=== PATIENT | female | born 1990 | race Caucasian/White ===

== ENCOUNTER 2020-11-03 07:43 | Emergency (ER) | payer BC, SELFPAY ==
--- OUTSIDE RECORDS SUMMARY | 2020-11-03 07:46 | XMS REPORT | Continuity of Care Document ---
:1990 Author Organization [facility] t Address [address] [place] [address] Care Team Providers Name Role Phone Unavailable Unavailable Unavailable Problems This patient has no known problems. Allergies, Adverse Reactions, Alerts This patient has no known allergies or adverse reactions. Medications Ordered Filled Start Stop Current Ordering Indication Dosage Frequency Signature Comments Components Source Medication Medication Date Date Medication? Clinician (SIG) Name Name Phentermine Phentermine Yes Andria [address] [facility] HCl HCl [facility] Clinics Macrobid Macrobid Yes Andria [address] [facility] at bedtime [facility] Procedures This patient has no known procedures. Encounters Start End Encounter Admission Attending Care Care Encounter Source Date/Time Date/Time Type Type Clinicians Facility Department ID 2019-10-17 2019-10-17 Outpatient Neela Murguia [id number] [facility] 10:55:00 10:55:00 t Specialty/U Susan kes - Special[facility] 2019-09-18 2019-09-18 Outpatient Neela Murguia [id number] [facility] 09:00:00 09:00:00 t Specialty/U Susan kes - Specialty rology [facility] l [facility] ent Clinics Results This patient has no known results.
[2020-11-03] MEDS ORDERED: IBUPROFEN 400 MG TAB ONE (08:58)
[2020-11-03 10:25] LABS: SARS-COV-2 RT PCR POSITIVE (NEGATIVE)
--- NOTE | 2020-11-03 10:31 | ER ---
Nurse's Notes [facility] Name: Royal Griffin Age: 30 yrs Sex: Female : 1990 Arrival Date: 11/03/2020 Time: 08:07 Bed 11 Private MD: Diagnosis: SARS-associated coronavirus as the cause of diseases classified elsewhere;Infectious mononucleosis, unspecified without complication;Headache Presentation: 11/03 08:12 Chief complaint: Patient states: LIN x 3 weeks, fever TMAX 100.5 that began 2 days ago. ss Coronavirus screen: Client presents with at least one sign or symptom that may indicate coronavirus-19. Standard/surgical mask placed on the client. Provider contacted for isolation considerations. Ebola Screen: Patient denies exposure to infectious person. Patient denies travel to an Ebola-affected area in the 21 days before illness onset. Initial Sepsis Screen: Does the patient meet any 2 criteria? No. Patient's initial sepsis screen is negative. Does the patient have a suspected source of infection? No. Patient's initial sepsis screen is negative. Risk Assessment: Do you want to hurt yourself or someone else? Patient reports no desire to harm self or others. Note Pt reports that she was seen by a physician yesterday and diagnosed with a sinus infection and given unknown medication. Onset of symptoms was October 13, 2020. 08:12 Method Of Arrival: Ambulatory ss 08:12 Acuity: MARIO 3 ss Historical: - Allergies: 08:13 No Known Allergies; ss - Home Meds: 08:13 None [Active]; ss - PMHx: 08:13 None; ss - PSHx: 08:13 None; ss - Immunization history:: Adult Immunizations up to date, Client reports having NOT received the Covid vaccine. - Social history:: Smoking status: Patient denies any tobacco usage or history of. - Family history:: not pertinent. - Hospitalizations: : No recent hospitalization is reported. Screenin:14 Abuse screen: Denies threats or abuse. Denies injuries from another. Nutritional ss screening: No deficits noted. Tuberculosis screening: Never had TB. Fall Risk None identified. Assessment: 08:14 General: Appears in no apparent distress. comfortable, Behavior is calm, cooperative, ss Reports fever for 1-2 days. Neuro: Level of Consciousness is awake, alert, obeys commands, Oriented to person, place, time, situation, Sock Mender are equal bilaterally Moves all extremities. Full function Gait is steady, Speech is normal, Facial symmetry appears normal, Pupils are PERRLA, Reports headache frontal area, since x 3 weeks Denies blurred vision dizziness, numbness. Cardiovascular: Capillary refill < 3 seconds is brisk in bilateral fingers Patient's skin is warm and dry. Respiratory: Airway is patent Respiratory effort is even, unlabored, Respiratory pattern is regular, symmetrical, Denies cough, shortness of breath labored breathing. GI: No signs and/or symptoms were reported involving the gastrointestinal system. Patient currently denies diarrhea, nausea, vomiting. : No signs and/or symptoms were reported regarding the genitourinary system. Denies burning with urination, urinary frequency. EENT: Oral mucosa is moist. Throat is clear Denies blurred vision nasal congestion, nasal discharge. Derm: Skin is intact, is healthy with good turgor, Skin is dry, Skin is pink, warm \T\ dry. normal. Vital Signs: 08:12 BP 125 / 87; Pulse 104; Resp 16; Temp 99.1(TE); Pulse Ox 100% on R/A; Weight 93.44 kg; ss Height 5 ft. 3 in. (160.02 cm); 08:12 Body Mass Index 36.49 (93.44 kg, 160.02 cm) ss Johnson Coma Score: 10:28 Eye Response: spontaneous(4). Verbal Response: oriented(5). Motor Response: obeys rn commands(6). Total: 15. ED Course: 08:07 Patient arrived in ED. ds1 08:07 Sherman Linares MD is Attending Physician. rn 08:12 Edith Easley RN is Primary Nurse. ss 08:13 Triage completed. ss 08:13 Arm band placed on right wrist. ss 08:14 Patient has correct armband on for positive identification. Bed in low position. Call ss light in reach. 08:14 No provider procedures requiring assistance completed. Patient did not have IV access ss during this emergency room visit. Administered Medications: 08:31 Not Given (Other Intervention Used): Tylenol 1000 mg PO once ss 08:35 Not Given (Other Intervention Used): Motrin (ibuprofen) 600 mg PO once ss 08:36 Drug: Motrin (ibuprofen) 800 mg Route: PO; ss 10:39 Follow up: Response: No adverse reaction Outcome: 10:30 Discharge ordered by . rn 10:39 Discharged to home ambulatory. 10:39 Condition: good 10:39 Discharge instructions given to patient, Instructed on discharge instructions, follow up and referral plans. Demonstrated understanding of instructions, follow-up care. 10:39 Patient left the ED. Signatures: FooteMagdalena ds1 Sherman Linares MD MD rn Smirch, Shelby, RN RN ss Corrections: (The following items were deleted from the chart) 08:20 08:12 Acuity: MARIO 4 ss ss 08:35 08:35 Motrin (ibuprofen) 800 mg PO [facility]
--- NOTE | 2020-11-03 10:31 | EDPHYS ---
Physician Documentation [facility] Name: Royal Griffin Age: 30 yrs Sex: Female : 1990 Arrival Date: 11/03/2020 Time: 08:07 Bed 11 Private MD: ED Physician Sherman Linares HPI: 11/03 08:38 This 30 yrs old Female presents to ER via Ambulatory with complaints of rn Headache, Fever. 08:38 The patient complains of pain to the forehead. The patient describes the headache as rn aching. Onset: The symptoms/episode began/occurred 3 week(s) ago. Associated signs and symptoms: Pertinent positives: fever, sinus congestion, Pertinent negatives: altered mental status, neck stiffness, rash, vision changes, vision loss, vomiting, weakness, vertigo. Severity of symptoms: At its worst the pain was moderate, "similar to past headaches", in the emergency department the pain is unchanged. Headache History: The patient has had previous headaches and this one is similar to previous episodes. The symptoms are alleviated by nothing. the symptoms are aggravated by nothing. The patient has experienced similar episodes in the past. The patient has been recently seen by a physician:. Patient reports 3 weeks of frontal headache, was not terrible, similar to previous headaches in the past. Began with low-grade fever and worsening of headache 3 days ago. Seen at walk-in clinic, diagnosed with sinusitis and given antibiotic. Denies head injury. Denies focal neurological problems. No vomiting. No neck stiffness. Reports even at increased level of pain is similar to previous headaches. Came in today for worsening headache and does not have PCP.. Historical: - Allergies: 08:13 No Known Allergies; ss - Home Meds: 08:13 None [Active]; ss - PMHx: 08:13 None; ss - PSHx: 08:13 None; ss - Immunization history:: Adult Immunizations up to date, Client reports having NOT received the Covid vaccine. - Social history:: Smoking status: Patient denies any tobacco usage or history of. - Family history:: not pertinent. - Hospitalizations: : No recent hospitalization is reported. ROS: 08:38 Constitutional: Negative for weight loss Eyes: Negative for injury, pain, redness, and consultant internship, ENT: Positive for sinus congestion Neck: Negative for injury, pain, and swelling, Cardiovascular: Negative for chest pain, palpitations, and edema, Respiratory: Negative for shortness of breath, cough, wheezing, and pleuritic chest pain, Abdomen/GI: Negative for abdominal pain, nausea, vomiting, diarrhea, and constipation, Back: Negative for injury and pain, : Negative for injury, bleeding, discharge, and swelling, MS/Extremity: Negative for injury and deformity, Skin: Negative for injury, rash, and discoloration, Neuro: Negative for weakness, numbness, tingling, and seizure. 08:38 All other systems are negative. Exam: 08:38 Constitutional: This is a well developed, well nourished patient who is awake, alert, rn and in no acute distress. Head/Face: Normocephalic, atraumatic. Eyes: Pupils equal round and reactive to light, extra-ocular motions intact. Lids and lashes normal. Conjunctiva and sclera are non-icteric and not injected. Cornea within normal limits. Periorbital areas with no swelling, redness, or edema. ENT: Mucous membranes moist. No oral swelling, erythema, masses Neck: Trachea midline, no masses palpated, and no cervical lymphadenopathy. Supple, full range of motion without nuchal rigidity, or vertebral point tenderness. No Meningismus. Cardiovascular: Tachycardic, regular. No pulse deficits. Respiratory: No increased work of breathing, no retractions or nasal flaring. Abdomen/GI: Soft, non-tender Skin: Warm, dry, no rashes MS/ Extremity: Pulses equal, no cyanosis. Neuro: Awake and alert, GCS 15, oriented to person, place, time, and situation. Motor strength 5/5 in all extremities. Sensory grossly intact. Cerebellar exam normal. Normal gait. Vital Signs: 08:12 BP 125 / 87; Pulse 104; Resp 16; Temp 99.1(TE); Pulse Ox 100% on R/A; Weight 93.44 kg; ss Height 5 ft. 3 in. (160.02 cm); 08:12 Body Mass Index 36.49 (93.44 kg, 160.02 cm) Kamaljit Coma Score: 10:28 Eye Response: spontaneous(4). Verbal Response: oriented(5). Motor Response: obeys rn commands(6). Total: 15. MDM: 08:21 Patient medically screened. rn 10:28 Differential diagnosis: migraine, sinusitis, tension headache, vasomotor headache, rn [place], Covid, flu, strep. Data reviewed: vital signs, nurses notes, lab test result(s), and as a result, I will discharge patient. Data interpreted: Pulse oximetry: on room air is 100 %. Interpretation: normal. Counseling: I had a detailed discussion with the patient and/or guardian regarding: the historical points, exam findings, and any diagnostic results supporting the discharge/admit diagnosis, lab results, the need for outpatient follow up, to return to the emergency department if symptoms worsen or persist or if there are any questions or concerns that arise at home. Response to treatment: the patient's symptoms have mildly improved after treatment, and as a result, I will discharge patient. Special discussion: I discussed with the patient/guardian in detail that at this point there is no indication for admission to the hospital. It is understood, however, that if the symptoms persist or worsen the patient needs to return immediately for re-evaluation. ED course: [place] positive, Covid positive, no oxygen requirement. Will DC home with symptomatic treatment and return precautions. Patient does not meet criteria for monoclonal antibody infusion for Covid.. 11/03 08:18 Order name: Flu ss 11/03 08:18 Order name: Strep; Complete Time: 10:02 ss 11/03 08:18 Order name: [place] Screen Profile; Complete Time: 10:02 ss 11/03 09:22 Order name: Throat Culture EDMS 11/03 10:25 Order name: COVID-19/FLU A+B; Complete Time: 10:28 EDMS Administered Medications: 08:31 Not Given (Other Intervention Used): Tylenol 1000 mg PO once ss 08:35 Not Given (Other Intervention Used): Motrin (ibuprofen) 600 mg PO once ss 08:36 Drug: Motrin (ibuprofen) 800 mg Route: PO; ss 10:39 Follow up: Response: No adverse reaction ss Disposition Summary: 11/03/20 10:30 Discharge Ordered Location: Home rn Problem: new rn Symptoms: have improved rn Condition: Stable rn Diagnosis - SARS-associated coronavirus as the cause of diseases classified elsewhere rn - Infectious mononucleosis, unspecified without complication rn - Headache rn Followup: rn - With: Private Physician - When: As needed - Reason: Recheck today's complaints, Re-evaluation by your physician Discharge Instructions: - Discharge Summary Sheet rn - Infectious Mononucleosis rn - COVID-19 rn - 10 Things You Can Do to Manage Your COVID-19 Symptoms at Home - CDC rn - Viral Illness, Adult rn Forms: - Medication Reconciliation Form rn - Thank You Letter rn - Antibiotic 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 Began with low-grade fever and worsening of headache 3 days ago. Seen at walk-in clinic, diagnosed with sinusitis and given antibiotic. Denies head injury. Denies focal neurological problems. No vomiting. No neck stiffness.. rn 08:51 08:19 Influenza Screen (A ordered. EDMS EDMS 08:51 08:19 CORONAVIRUS+MR.LAB.BRZ ordered. EDMS EDMS
[2020-11-03 10:45] VITALS: BP 125/87; TEMP 99.1; O2SAT 100
== END 2020-11-03 10:39 | disposition home or self-care (01) ==
LOC: ER 07:43
DX: U07.1 COVID-19 (principal); B27.90 Infectious mononucleosis, unspecified without complication
CPT/HCPCS: 0240U; 36415; 86308; 87070; 87081; 99283

== ENCOUNTER 2020-11-08 05:22 | Emergency (ER) | payer SELFPAY ==
--- OUTSIDE RECORDS SUMMARY | 2020-11-08 05:26 | XMS REPORT | Continuity of Care Document ---
:1990 Author Organization [facility] t Address [address] [place] [address] Care Team Providers Name Role Phone Unavailable [...] [facility] Macrobid Macrobid Yes Andria [address] [facility] at bedtime [facility] Procedures This patient has no known procedures. Encounters Start End Encounter Admission Attending Care Care Encounter Source Date/Time Date/Time Type Type Clinicians Facility Department ID 2019-10-17 2019-10-17 Outpatient Neela Murguia [id number] [facility] 10:55:00 10:55:00 t Specialty/U Susan kes - Specialty [facility] 2019-09-18 2019-09-18 Outpatient Neela Murguia [id number] [facility] 09:00:00 09:00:00 t Specialty/U Susan kes - Specialty rology [facility] l [facility] ent Clinics Results This patient has no known results.
[2020-11-08 06:36] LABS: Absolute Lymphocytes (CBC) 1.1 K/uL (0.7-4.9); Basophils % 0.4 % (0-1.3); Hematocrit 41.8 % (36.0-45.0); Lymphocytes % 26.9 % (15.3-44.8); MPV 8.4 fL (7.6-11.3); RBC Red Blood Cell Count 4.91 M/uL (3.86-4.86)
[2020-11-08 06:48] LABS: BUN Blood Urea Nitrogen 7 mg/dL (7-18); Bicarbonate 18 mmol/L (21-32); Glucose Level 97 mg/dL (74-106); Potassium 3.4 mmol/L (3.5-5.1); Sodium Level 133 mmol/L (136-145)
[2020-11-08] MEDS ORDERED: ONDANSETRON 4 MG/2 ML VIAL ONE (06:56)
[2020-11-08] MEDS ORDERED: NA CHLORIDE 0.9% 1,000 ML ONE ×2 (06:56→08:22)
[2020-11-08 07:44] LABS: Urine Blood 2+ (Negative); Urine Glucose Negative (Negative); Urine Protein Trace (Negative)
--- NOTE | 2020-11-08 07:52 | EDPHYS ---
Physician Documentation [facility] Name: Royal Griffin Age: 30 yrs Sex: Female : 1990 Arrival Date: 11/08/2020 Time: 05:25 Bed 9 Private MD: ED Physician James Salas HPI: 11/08 06:03 This 30 yrs old Female presents to ER via Ambulatory with complaints of kb Dehydrated, Fever. 06:03 The patient presents to the emergency department with nausea, vomiting, diarrhea. kb Onset: The symptoms/episode began/occurred 5 day(s) ago. Possible causes: unknown. The symptoms are aggravated by nothing. The symptoms are alleviated by nothing. Associated signs and symptoms: Pertinent positives: diarrhea, fever, nausea, vomiting. Severity of symptoms: At their worst the symptoms were moderate in the emergency department the symptoms are unchanged. The patient has not experienced similar symptoms in the past. The patient has not recently seen a physician. Pt states "I just don't feel good. I think I'm dehydrated." Reports n/v/d, fever, chills, headache, low back pain and malaise for 5 days. . 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 - Social history:: Smoking status: unknown. ROS: 06:05 Respiratory: Negative for shortness of breath, cough, wheezing, and pleuritic chest kb pain. 06:05 Constitutional: Positive for chills, fever, malaise. 06:05 Abdomen/GI: Positive for nausea, vomiting, and diarrhea, Negative for abdominal pain. 06:05 Back: Positive for pain at rest, pain with movement. 06:05 Neuro: Positive for headache. 06:05 All other systems are negative. Exam: 06:05 Constitutional: This is a well developed, well nourished patient who is awake, alert, kb and in no acute distress. Head/Face: Normocephalic, atraumatic. ENT: Moist Mucous membranes Cardiovascular: Regular rate and rhythm with a normal S1 and S2. No gallops, murmurs, or rubs. No pulse deficits. Respiratory: Respirations even and unlabored. No increased work of breathing, no retractions or nasal flaring. Abdomen/GI: Soft, non-tender. No distention Back: No spinal tenderness. No costovertebral tenderness. Full range of motion. Skin: Warm, dry with normal turgor. Normal color. MS/ Extremity: Pulses equal, no cyanosis. Neurovascular intact. Full, normal range of motion. Neuro: Awake and alert, GCS 15, oriented to person, place, time, and situation. Moves all extremities. Normal gait. Psych: Awake, alert, with orientation to person, place and time. Behavior, mood, and affect are within normal limits. Vital Signs: 05:34 BP 131 / 86; Pulse 122; Resp 20; Temp 98.5; Pulse Ox 99% on R/A; da3 07:07 BP 106 / 59; Pulse 87; Resp 22 S; Temp 99.6(O); Pulse Ox 97% on R/A; bb MDM: 05:57 Patient medically screened. kb 06:05 Data reviewed: vital signs, nurses notes. Data interpreted: Pulse oximetry: on room air kb is 99 %. Interpretation: normal. 11/08 06:03 Order name: Basic Metabolic Panel; Complete Time: 06:49 kb 11/08 06:03 Order name: CBC with Diff; Complete Time: 06:49 kb 11/08 06:03 Order name: COVID-19 : Document "Date of Symptom Onset" if Symptomatic. kb 11/08 07:44 Order name: Urine Dipstick-Ancillary; Complete Time: 07:51 EDMS 11/08 06:03 Order name: IV Saline Lock; Complete Time: 06:40 kb 11/08 06:03 Order name: Labs collected and sent; Complete Time: 06:40 kb 11/08 06:03 Order name: Urine Dipstick-Ancillary (obtain specimen); Complete Time: 07:36 kb Administered Medications: 06:40 Drug: NS 0.9% 1000 ml Route: IV; Rate: 1000 ml; Site: left forearm; bb 08:52 Follow up: IV Status: Completed infusion; IV Intake: 1000ml ss 06:40 Drug: Zofran (Ondansetron) 4 mg Route: IVP; Site: left forearm; bb 07:38 Follow up: Response: No adverse reaction ss 08:05 Drug: Ketorolac 30 mg Route: IVP; Site: left forearm; ss 08:52 Follow up: Response: No adverse reaction; Pain is decreased ss 08:05 Drug: NS 0.9% 1000 ml Route: IV; Rate: 1000 ml; Site: left forearm; ss 08:52 Follow up: IV Status: Completed infusion; IV Intake: 1000ml ss Disposition: 11/09 05:10 Co-signature as Attending Physician, James Salas MD. [email or web address] Disposition Summary: 11/08/20 07:51 Discharge Ordered Location: Home kb Condition: Stable kb Diagnosis - Coronavirus infection, unspecified kb - Infectious mononucleosis, unspecified without complication kb Followup: kb - With: Emergency Department - When: As needed - Reason: Worsening of condition Followup: kb - With: Private Physician - When: 2 - 3 days - Reason: Recheck today's complaints, Continuance of care, Re-evaluation by your physician Discharge Instructions: - Discharge Summary Sheet kb - Viral Respiratory Infection, [id number] kb - Infectious Mononucleosis, [id number] kb - COVID-19 kb Forms: - Medication Reconciliation Form kb - Thank You Letter kb - Antibiotic Education kb - Prescription Opioid Use kb - Work release form eb Prescriptions: - Zofran 4 mg Oral Tablet - take 1 tablet by ORAL route every 6 hours As needed; 20 tablet; Refills: 0, kb Product Selection Permitted Signatures: Dispatcher [employer] Nataliia Ferguson, ABBIE-C RN INTEGRITY-Breanne Velasco, RN Edith Viramontes RN RN ss Holmes, Maurice, MD MD [email or web address] Jesus Terrazas RN RN da3
--- NOTE | 2020-11-08 07:52 | ER ---
Nurse's Notes [facility] Name: Royal Griffin Age: 30 yrs Sex: Female : 1990 Arrival Date: 11/08/2020 Time: 05:25 Bed 9 Private MD: Diagnosis: Coronavirus infection, unspecified;Infectious mononucleosis, unspecified without complication Presentation: 11/08 05:32 Chief complaint: Patient states: fever x 7 days with N/V. Coronavirus screen: Client da3 denies travel out of the [place] in the last 14 days. Ebola Screen: No symptoms or risks identified at this time. Risk Assessment: Do you want to hurt yourself or someone else? Patient reports no desire to harm self or others. 05:32 Method Of Arrival: Ambulatory da3 05:32 Acuity: MARIO 3 da3 07:38 Coronavirus screen: Client presents with at least one sign or symptom that may indicate ss coronavirus-19. Standard/surgical mask placed on the client. Provider contacted for isolation considerations. Initial Sepsis Screen: Does the patient meet any 2 criteria? No. Patient's initial sepsis screen is negative. Does the patient have a suspected source of infection? No. Patient's initial sepsis screen is negative. Onset of symptoms was October 2020. Triage Assessment: 05:34 General: Appears in no apparent distress. comfortable, Behavior is calm, cooperative. 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 - Social history:: Smoking status: unknown. Screenin:00 Abuse screen: Denies threats or abuse. Nutritional screening: No deficits noted. bb Tuberculosis screening: No symptoms or risk factors identified. Fall Risk None identified. Assessment: 06:00 General: Appears in no apparent distress. uncomfortable, Behavior is calm, cooperative. bb Pain: Complains of pain in back of eyes. Neuro: Level of Consciousness is awake, alert, obeys commands, Oriented to person, place, time, situation. Cardiovascular: Capillary refill < 3 seconds Patient's skin is warm and dry. Respiratory: Respiratory effort is unlabored, Respiratory pattern is tachypnea. GI: No signs and/or symptoms were reported involving the gastrointestinal system. Derm: Skin is pink, warm \T\ dry. Musculoskeletal: Circulation, motion, and sensation intact. 07:10 Reassessment: No changes from previously documented assessment. Patient is alert, bb oriented x 3, equal unlabored respirations, skin warm/dry/pink. IV site intact with fluids infusing. 08:05 Reassessment: Patient appears in no apparent distress at this time. Patient and/or ss family updated on plan of care and expected duration. Pain level reassessed. Patient verbalizes understanding of discharge instructions. Awaiting for second liter of NS to infuse prior to discharging home. Vital Signs: 05:34 BP 131 / 86; Pulse 122; Resp 20; Temp 98.5; Pulse Ox 99% on R/A; da3 07:07 BP 106 / 59; Pulse 87; Resp 22 S; Temp 99.6(O); Pulse Ox 97% on R/A; bb ED Course: 05:20 Initial lab(s) drawn, by ED staff, sent to lab. Inserted saline lock: 22 gauge in left bb forearm, using aseptic technique. ,using aseptic technique. by [facility] tech Blood collected. 05:25 Patient arrived in ED. wm 05:33 Triage completed. da3 05:57 Natal[facility]ia Trejo FNP-C [facility]. kb 05:57 James Salas MD is Attending Physician. kb 05:57 Missed attempt(s): 20 gauge in right forearm. tt3 06:00 No provider procedures requiring assistance completed. bb 06:00 Patient has correct armband on for positive identification. Call light in reach. bb 06:11 Breanne Villa, DERRICK is Primary Nurse. bb 07:38 Arm band placed on right wrist. ss 08:52 IV discontinued, intact, bleeding controlled, No redness/swelling at site. Pressure ss dressing applied. Administered Medications: 06:40 Drug: NS 0.9% 1000 ml Route: IV; Rate: 1000 ml; Site: left forearm; bb 08:52 Follow up: IV Status: Completed infusion; IV Intake: 1000ml ss 06:40 Drug: Zofran (Ondansetron) 4 mg Route: IVP; Site: left forearm; bb 07:38 Follow up: Response: No adverse reaction ss 08:05 Drug: Ketorolac 30 mg Route: IVP; Site: left forearm; 08:52 Follow up: Response: No adverse reaction; Pain is decreased ss 08:05 Drug: NS 0.9% 1000 ml Route: IV; Rate: 1000 ml; Site: left forearm; ss 08:52 Follow up: IV Status: Completed infusion; IV Intake: 1000ml ss Intake: 08:52 IV: 1000ml; Total: 1000ml. ss 08:52 IV: 1000ml; Total: 2000ml. Outcome: 07:51 Discharge ordered by . cecily 08:52 Discharged to home ambulatory. ss 08:52 Condition: improved 08:52 Discharge instructions given to patient, Instructed on discharge instructions, follow up and referral plans. medication usage, Demonstrated understanding of instructions, follow-up care, medications, Prescriptions given X 1. 08:53 Patient left the ED. Signatures: Nataliia Trejo, ELECTRICAL FITTER-C ELECTRICAL FITTER-Ckb Breanne Villa RN RN bb Edith Easley RN RN Julito Brooke tt3 Candace Kruse Jesus Terrazas RN RN da3
[2020-11-08] MEDS ORDERED: KETOROLAC 30 MG/ML INJ ONE (08:21)
[2020-11-08 09:00] VITALS: BP 106/59; TEMP 99.6; O2SAT 97
== END 2020-11-08 08:53 | disposition home or self-care (01) ==
LOC: ER 05:22
DX: U07.1 COVID-19 (principal); B27.90 Infectious mononucleosis, unspecified without complication
CPT/HCPCS: 36415; 80048; 81003; 85025; 96361; 96374; 96375; 99284; J2405; J7030

== ENCOUNTER 2021-06-15 14:13 | Emergency (ER) | payer SELFPAY ==
[2011-10-13 11:34] VITALS: BP 100/64
--- OUTSIDE RECORDS SUMMARY | 2021-06-15 14:15 | XMS REPORT | Continuity of Care Document ---
:1990 Author Organization [facility] t Address [address] [place] [address] Care Team Providers Name Role Phone PCP, DOES NOT HAVE A Primary Care Physician Unavailable SONG Attending Clinician Unavailable Problems This patient has no known problems. Allergies, Adverse Reactions, Alerts Allergy Allergy Status Severity Reaction(s) Onset Inactive Treating Comm ents Source Name Type Date Date Clinician NO KNOWN Drug Active [facility] ALLERG[facility] Medications Ordered Filled Start Stop Current Ordering Indication Dosage Frequency Signature Comments Components Source Medication Medication Date Date Medication? Clinician (SIG) Name Name Phentermine Phentermine Yes Andria [address] [facility] HCl HCl [facility] Macrobid Macrobid Yes Andria [address] [facility] at bedtime [facility] Procedures This patient has no known procedures. Encounters Start End Encounter Admission Attending Care Care Encounter Source Date/Time Date/Time Type Type Clinicians Facility Department ID 2021-04-07 Outpatient [facility] [id number] [facility] [address] 11:35:36 [id number] [facility] 2021-04-07 Outpatient [facility] [id number] [facility] 11:30:22 [id number] [facility] 2021-05-24 2021-05-24 Outpatient R REJI [facility] [id number] [facility] 13:20:00 13:31:03 JEREMY [facility] 2021-05-24 2021-05-24 Outpatient R [facility] [id number] [facility] 13:20:00 13:20:00 [id number] [facility] 2020-11-02 2020-11-02 Outpatient Johnna MENDOZA [facility] [id number] [facility] 20:20:00 20:20:00 JEREMY [facility] 2019-10-17 2019-10-17 Outpatient Neela Murguia [id number] [address] 10:55:00 10:55:00 t Specialty/U [facility] l [facility] Outpati ent Clinics 2019-09-18 2019-09-18 Outpatient Neela Murguia [id number] [facility] 09:00:00 09:00:00 t Specialty/[facility]rology [facility] l Clinic Outpati ent Clinics Results This patient has no known results.
[2021-06-15 15:08] LABS: Absolute Lymphocytes (CBC) 1.4 K/uL (0.7-4.9); Hematocrit 40.6 % (36.0-45.0); Lymphocytes % 15.7 % (15.3-44.8); MPV 8.3 fL (7.6-11.3); RBC Red Blood Cell Count 4.75 M/uL (3.86-4.86)
[2021-06-15] MEDS ORDERED: NA CHLORIDE 0.9% 1,000 ML ONE (15:08)
[2021-06-15 15:26] LABS: ALT/SGPT 22 U/L (12-78); AST/SGOT 14 U/L (15-37); Albumin 3.8 g/dL (3.4-5.0); Alkaline Phosphatase 68 U/L (45-117); BUN Blood Urea Nitrogen 11 mg/dL (7-18); Bicarbonate 19 mmol/L (21-32); Bilirubin Total 0.7 mg/dL (0.2-1.0); Glucose Level 75 mg/dL (74-106); Lipase 156 U/L (73-393); Potassium 3.3 mmol/L (3.5-5.1); Protein, Total 7.6 g/dL (6.4-8.2); Sodium Level 138 mmol/L (136-145)
--- NOTE | 2021-06-15 16:09 | RAD REPORT ---
EXAM DESCRIPTION: CTAbdomen Pelvis W Contrast - 06/15/2021 4:00 pm CLINICAL HISTORY: Abdominal pain. ABD PAIN COMPARISON: No comparisons TECHNIQUE: Biphasic CT imaging of the abdomen and pelvis was performed with 100 ml non-ionic IV cont rast. All CT scans are performed using dose optimization technique as appropriate and may include automated exposure control or mA/KV adjustment according to patient size. FINDINGS: The lung bases are clear.Postsurgical changes are present about the stomach. Small hiatal hernia. The liver, spleen, pancreas, adrenal glands and kidneys are within normal limits. No bowel obstruction, free air, free fluid or abscess. Small fat containing umbilical hernia. The gideon endix is normal. Trace pelvic free fluid. No evidence of significant lymphadenopathy. No suspicious bony findings. IMPRESSION: No acute intra-abdominal or pelvic finding.
--- NOTE | 2021-06-15 16:59 | EDPHYS ---
Physician Documentation [facility] Name: Royal Griffin Age: 30 yrs Sex: Female : 1990 Arrival Date: 06/15/2021 Time: 14:15 Bed 28 Private MD: Jef Villegas ED Physician Dank Quinones HPI: 06/15 15:06 This 30 yrs old Female presents to ER via Ambulatory with complaints of Post Surgical sp3 Pain. 15:06 30-year-old female with no known past medical history with obesity presents with sp3 epigastric pain extending to the right upper quadrant status post gastric sleeve performed in [facility] on June 09. He was doing okay until approximately 48 hours ago where she developed pain and she now has an inability to hold down any food or liquid in the small amounts that she is supposed to be having postoperatively. When asked about follow-up, she stated that her PCP here in [facility] will be dealing with follow-up in recovery. When asked if he had a surgical complication where she needed to see a surgeon, she stated that the surgeon in [place] told her to come to the emergency department. She denies chest pain, shortness of breath, back pain fever, diarrhea, dysuria, any other symptoms on ROS at this time.. 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 Flu vaccine is not up to date. - Social history:: Smoking status: Reported history of juuling and/or vaping. Patient uses alcohol, occasionally. ROS: 15:10 Constitutional: Negative for fever, chills, and weight loss, Eyes: Negative for injury, sp3 pain, redness, and discharge, ENT: Negative for injury, pain, and discharge, Neck: Negative for injury, pain, and swelling, Cardiovascular: Negative for chest pain, palpitations, and edema, Respiratory: Negative for shortness of breath, cough, wheezing, and pleuritic chest pain, Back: Negative for injury and pain, MS/Extremity: Negative for injury and deformity, Skin: Negative for injury, rash, and discoloration, Neuro: Negative for headache, weakness, numbness, tingling, and seizure, Psych: Negative for depression, anxiety, suicide ideation, homicidal ideation, and hallucinations, Allergy/Immunology: Negative for hives, rash, and allergies, Endocrine: Negative for neck swelling, polydipsia, polyuria, polyphagia, and marked weight changes. 15:10 All other systems are negative. Exam: 15:10 Constitutional: This is a well developed, well nourished patient who is awake, alert, sp3 and in no acute distress. Head/Face: Normocephalic, atraumatic. Eyes: Pupils equal round and reactive to light, extra-ocular motions intact. Lids and lashes normal. Conjunctiva and sclera are non-icteric and not injected. Cornea within normal limits. Periorbital areas with no swelling, redness, or edema. ENT: Nares patent. No nasal discharge, no septal abnormalities noted. External auditory canals are clear. Oropharynx with no redness, swelling, or masses, exudates, or evidence of obstruction, uvula midline. Mucous membranes moist. Neck: Trachea midline, no thyromegaly or masses palpated, and no cervical lymphadenopathy. Supple, full range of motion without nuchal rigidity, or vertebral point tenderness. No Meningismus. Chest/axilla: Normal chest wall appearance and motion. Nontender with no deformity. No lesions are appreciated. Cardiovascular: Regular rate and rhythm with a normal S1 and S2. No gallops, murmurs, or rubs. Normal PMI, no JVD. No pulse deficits. Respiratory: Lungs have equal breath sounds bilaterally, clear to auscultation and percussion. No rales, rhonchi or wheezes noted. No increased work of breathing, no retractions or nasal flaring. Back: No spinal tenderness. No costovertebral tenderness. Full range of motion. Skin: Warm, dry with normal turgor. Normal color with no rashes, no lesions, and no evidence of cellulitis. MS/ Extremity: Pulses equal, no cyanosis. Neurovascular intact. Full, normal range of motion. Neuro: Awake and alert, GCS 15, oriented to person, place, time, and situation. Cranial nerves II-XII grossly intact. Motor strength 5/5 in all extremities. Sensory grossly intact. Cerebellar exam normal. Normal gait. Psych: Awake, alert, with orientation to person, place and time. Behavior, mood, and affect are within normal limits. 15:10 Abdomen/GI: As diffuse abdominal pain to palpation without rebound or guarding. Surgical sites are consistent with laparoscopic surgery and demonstrate no signs of infection including erythema or drainage.. Vital Signs: 14:19 BP 131 / 84; Pulse 99; Resp 19; Temp 98.1; Pulse Ox 100% ; Weight 94.8 kg; Height 5 ft. ap3 3 in. (160.02 cm); Pain 8/10; 17:09 Pulse 97; Resp 18 S; Pulse Ox 100% on R/A; jd3 14:19 Body Mass Index 37.02 (94.80 kg, 160.02 cm) ap3 MDM: 14:44 Patient medically screened. sp3 15:11 Data reviewed: vital signs, nurses notes. ED course: 10-year-old female postop day 5 sp3 after surgery in [facility] for a laparoscopic gastric sleeve. Patient now presents abdominal pain and will receive a full work-up including laboratory values and CT scan. Patient declined IV pain medications at this time. Differential diagnosis includes surgical complication, intra-abdominal abscess, bowel obstruction, internal bleeding, or other pathology found on CT scan. Disposition to be determined based on work-up and patient course.. 16:57 ED course: CT demonstrates no evidence of any postsurgical complication or other sp3 abnormality or bowel obstruction. Laboratory values are normal except for mild hypokalemia which will be replenished orally. Patient has been hydrated with normal saline IV as well. I have advised patient to call the surgical hotline for her surgeon in [place] and also follow-up with her PCP which she has an appointment on . Patient will be discharged at this time from the ER.. 06/15 14:44 Order name: CBC with Diff; Complete Time: 16:47 sp3 06/15 14:44 Order name: CMP; Complete Time: 16:47 sp3 06/15 14:44 Order name: Lipase; Complete Time: 16:47 sp3 06/15 14:44 Order name: CT Abd/Pelvis - IV Contrast Only; Complete Time: 16:47 sp3 06/15 14:44 Order name: IV Saline Lock; Complete Time: 15:07 sp3 06/15 14:44 Order name: Labs collected and sent; Complete Time: 15:07 sp3 Administered Medications: 15:07 Drug: NS 0.9% 1000 ml Route: IV; Rate: 1 bolus; Site: left antecubital; jd3 17:00 Follow up: Response: No adverse reaction; IV Status: Completed infusion; IV Intake: jd3 1000ml 17:02 Not Given (Patient Refused): Potassium Chloride 20 mEq PO once jd3 Disposition Summary: 06/15/21 16:58 Discharge Ordered Location: Home sp3 Condition: Stable sp3 Diagnosis - Abdominal pain, unspecified sp3 Followup: sp3 - With: Private Physician - When: Upon discharge from the Emergency Department - Reason: Further diagnostic work-up, Re-evaluation by your physician Discharge Instructions: - Discharge Summary Sheet sp3 - Abdominal Pain, Adult sp3 Forms: - Medication Reconciliation Form sp3 - Thank You Letter sp3 - Antibiotic Education sp3 - Prescription Opioid Use sp3 Signatures: Dispatcher [employer] Deon Clifford RN RN jd3 Kamilah Kamara RN RN ap3 Dank Quinones MD MD sp3
--- NOTE | 2021-06-15 16:59 | ER ---
Nurse's Notes [facility] Name: Royal Griffin Age: 30 yrs Sex: Female : 1990 Arrival Date: 06/15/2021 Time: 14:15 Bed 28 Private MD: Jef Villegas Diagnosis: Abdominal pain, unspecified Presentation: 06/15 14:19 Chief complaint: Patient states: she had a gastric sleeve procedure done last week on ap3 06/09/2021 in [place]. Patient states she didn't have much pain at first, however the last few days she has had quite a bit of pain. Patient states she is having a difficult time standing upright and taking deep breaths due to the pain. Coronavirus screen: At this time, the client does not indicate any symptoms associated with coronavirus-19. Ebola Screen: No symptoms or risks identified at this time. Initial Sepsis Screen: Does the patient meet any 2 criteria? HR > 90 bpm. Does the patient have a suspected source of infection? No. Patient's initial sepsis screen is negative. Risk Assessment: Do you want to hurt yourself or someone else? Patient reports no desire to harm self or others. Onset of symptoms was June 09, 2021. 14:19 Method Of Arrival: Ambulatory ap3 14:19 Acuity: MARIO 3 ap3 Triage Assessment: 14:21 General: Appears uncomfortable, Behavior is calm, cooperative, appropriate for age. ap3 Pain: Complains of pain in back and abdomen Quality of pain is described as burning, crampy, Pain began gradually, 2-3 days ago. Neuro: Level of Consciousness is awake, alert, obeys commands, Oriented to person, place, time, situation, Appropriate for age Speech is normal. Cardiovascular: Patient's skin is warm and dry. Respiratory: Airway is patent Respiratory effort is even, unlabored, Respiratory pattern is regular, symmetrical. Derm: Wound noted abdomen Wound is post surgical wound X's 5 on abdomen. wounds appear open. Patient states the surgeon didn't use stitches, but used dermabond. 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 Flu vaccine is not up to date. - Social history:: Smoking status: Reported history of juuling and/or vaping. Patient uses alcohol, occasionally. Screenin:23 Abuse screen: Denies threats or abuse. Nutritional screening: No deficits noted. ap3 Tuberculosis screening: No symptoms or risk factors identified. 14:27 Fall Risk Ambulatory Aid- None/Bed Rest/Nurse Assist (0 pts). Gait- Normal/Bed jd3 Rest/Wheelchair (0 pts) Mental Status- Oriented to own ability (0 pts). Total Marvin Fall Scale indicates No Risk (0-24 pts). Assessment: 14:35 General: Appears in no apparent distress. comfortable, Behavior is calm, cooperative, jd3 appropriate for age. Pain: Complains of pain in abdomen Pain radiates to back Quality of pain is described as shooting, tender. Neuro: Level of Consciousness is awake, alert, obeys commands, Oriented to person, place, time, situation. Cardiovascular: Denies chest pain, Capillary refill < 3 seconds Patient's skin is warm and dry. Respiratory: Airway is patent Respiratory effort is even, unlabored, Respiratory pattern is regular, symmetrical, Denies cough, shortness of breath. GI: Abdomen is round non-distended, Abd is soft X 4 quads Abdomen is tender to palpation X 4 quads. Reports loss of apatite and feeling dehydrated Patient currently denies diarrhea, nausea, vomiting. : No signs and/or symptoms were reported regarding the genitourinary system. Denies burning with urination, urinary frequency. EENT: No signs and/or symptoms were reported regarding the EENT system. Derm: Skin is intact, Skin is dry, Skin is normal, Skin temperature is warm Wound noted abdomen Wound is surgical wounds noted to abdomen. dark red in color. swelling around surgical sights. small amount of exudate noted. Musculoskeletal: Circulation, motion, and sensation intact. Range of motion: intact in all extremities. 15:35 Reassessment: Patient appears in no apparent distress at this time. No changes from jd3 previously documented assessment. Patient and/or family updated on plan of care and expected duration. Pain level reassessed. Patient is alert, oriented x 3, equal unlabored respirations, skin warm/dry/pink. awaiting CT. 16:20 Reassessment: Patient appears in no apparent distress at this time. Patient and/or jd3 family updated on plan of care and expected duration. Pain level reassessed. Patient is alert, oriented x 3, equal unlabored respirations, skin warm/dry/pink. awaiting disposition. 17:09 Reassessment: Patient appears in no apparent distress at this time. No changes from jd3 previously documented assessment. Patient and/or family updated on plan of care and expected duration. Pain level reassessed. Patient is alert, oriented x 3, equal unlabored respirations, skin warm/dry/pink. Vital Signs: 14:19 BP 131 / 84; Pulse 99; Resp 19; Temp 98.1; Pulse Ox 100% ; Weight 94.8 kg; Height 5 ft. ap3 3 in. (160.02 cm); Pain 8/10; 17:09 Pulse 97; Resp 18 S; Pulse Ox 100% on R/A; jd3 14:19 Body Mass Index 37.02 (94.80 kg, 160.02 cm) ap3 ED Course: 14:15 Patient arrived in ED. am2 14:15 Jef Villegas MD is Private Physician. am2 14:21 Triage completed. ap3 14:24 Arm band placed on left wrist. ap3 14:25 Deon Vazquez, DERRICK is Primary Nurse. jd3 14:27 Patient has correct armband on for positive identification. Bed in low position. Call jd3 light in reach. Side rails up X 1. Adult w/ patient. Pulse ox on. NIBP on. 14:30 Dank Quinones MD is Attending Physician. sp3 15:07 Inserted saline lock: 20 gauge in left antecubital area, using aseptic technique. Blood jd3 collected. 16:02 CT Abd/Pelvis - IV Contrast Only In Process Unspecified. EDMS 17:09 No provider procedures requiring assistance completed. IV discontinued, intact, jd3 bleeding controlled, No redness/swelling at site. Pressure dressing applied. Administered Medications: 15:07 Drug: NS 0.9% 1000 ml Route: IV; Rate: 1 bolus; Site: left antecubital; jd3 17:00 Follow up: Response: No adverse reaction; IV Status: Completed infusion; IV Intake: jd3 1000ml 17:02 Not Given (Patient Refused): Potassium Chloride 20 mEq PO once jd3 Intake: 17:00 IV: 1000ml; Total: 1000ml. jd3 Outcome: 16:58 Discharge ordered by . sp3 17:09 Discharged to home ambulatory, with family. jd3 17:09 Condition: stable 17:09 Discharge instructions given to patient, family, Instructed on discharge instructions, follow up and referral plans. Demonstrated understanding of instructions, follow-up care. 17:10 Patient left the ED. jd3 Signatures: Dispatcher [employer] EDKamilah Heath Jonathon, RN RN jd3 Kamilah Kamara RN RN ap3 Dank Quinones MD MD sp3
[2021-06-15] MEDS ORDERED: POTASSIUM CL SA 10 MEQ TAB PO ONE (17:03)
== END 2021-06-15 17:10 | disposition home or self-care (01) ==
LOC: ER 14:13
DX: R10.9 Unspecified abdominal pain (principal); E87.6 Hypokalemia; Z98.84 Bariatric surgery status
CPT/HCPCS: 36415; 74177; 80053; 83690; 85025; 96360; 96361; 99284; J7030; Q9967

== ENCOUNTER → 2021-07-02 | Day surgery (SDC) | payer SELFPAY ==
[2011-10-13 11:34] VITALS: BP 100/64
--- NOTE | 2021-07-02 10:06 | RAD REPORT ---
EXAM DESCRIPTION: US - Guided FNA Non Breast - 07/02/2021 9:41 am CLINICAL HISTORY: E04.1, right-sided thyroid mass found on outside imaging COMPARISON: No relevant comparison TECHNIQUE: Patient presents for ultrasound-guided FNA of a 3.2 centimeter solid nodule seen in the r ight lobe thyroid gland on outside imaging. Outside report was reviewed. Preliminary imaging identified a 3.2 centimeter solid nodule in the posteroinferior right thyroid lob e. The superior aspect of the nodule was accessible for FNA procedure. The procedure, risks and alternatives were discussed with the patient in detail. After answering all questions both oral and written consent were obtained. A time-out procedure was performed. Patient in dicated no contraindicated allergy or medication history. Preliminary imaging identified an anterior right neck access site. The skin was prepped and draped in the usual sterile fashion. Skin and deeper tissues down to the nodule anesthetized with 1% lidocaine under sonographic guidance. Under direct sonographic visualization a 25 gauge FNA needle was advanced into the superior aspect of the nodule. Multiple to and fro excursions of the needle tip performed. The FNA procedure was repeat ed with 4 additional 25 gauge needles using the same access site all under direct sonographic visuali zation. All obtained material was given to pathology for cytology/histology assessment. Postprocedure imaging showed no hematoma in the soft tissues. Sterile bandage was placed at the puncture site. Postprocedu re care and precaution instructions were given to the patient. IMPRESSION: Ultrasound-guided fine-needle aspiration was performed of the solid nodule in the right lobe of the thyroid gland. All obtained material was given to pathology for assessment. There were no complications.
== END ==
LOC: FNA 09:10
PROVIDERS: ATTEND Otolaryngology
PROC: 0GJK3ZZ Inspection of Thyroid Gland, Percutaneous Approach (ICD-10-PCS; principal; 2021-07-02)
PROC: BG44ZZZ Ultrasonography of Thyroid Gland (ICD-10-PCS; 2021-07-02)
DX: E04.1 Nontoxic single thyroid nodule (principal)
CPT/HCPCS: 88162